=== PATIENT | male | born 2000 | race Caucasian/White ===

== ENCOUNTER 2021-04-23 05:41 | Emergency (ER) | payer BC, MEDICAID, OTHER ==
[~2021-04-23] VITALS: Ht 170.2 cm; Wt 62.1 kg
[2021-04-23 06:49] VITALS: BP 123/81
== END 2021-04-23 07:13 | disposition home or self-care (01) ==
LOC: ER 05:41
DX: S23.41XA Sprain of ribs, initial encounter (principal); E10.8 Type 1 diabetes mellitus with unspecified complications; X58.XXXA Exposure to other specified factors, initial encounter; Y93.89 Activity, other specified; Y92.89 Other specified places as the place of occurrence of the external cause; Y99.8 Other external cause status
CPT/HCPCS: 71045

== ENCOUNTER 2021-05-28 03:22 | Emergency (ER) | payer OTHER ==
[~2021-05-28] VITALS: Ht 170.2 cm; Wt 62.6 kg
[2021-05-28] MEDS ORDERED: SODIUM CHLORIDE 0.9% 1,000 ML IV ONE ×2 (04:00→07:30)
[2021-05-28 04:37] LABS: Basophils # (auto) 0.1 10 ^3/uL (0-0.2); Basophils % (auto) 0.8 % (0.0-2.0); Eosinophils # (auto) 0 10 ^3/uL (0-0.8); Eosinophils % (auto) 0.3 % (0.0-7.0); Hemoglobin 16.7 g/dL (13.5-17.5); Lymphocytes # (auto) 1.8 10 ^3/uL (0.4-5.4); Lymphocytes % (auto) 25.2 % (10.0-50.0); Mean Corpuscular Hemoglobin 31.4 pg (28.0-32.0); Mean Corpuscular Hgb Conc. 34.1 g/dL (32.0-36.0); Mean Corpuscular Volume 92.1 fL (80.0-100.0); Monocytes # (auto) 0.9 10 ^3/uL (0-1.3); Monocytes % (auto) 12.6 % (0.0-12.0); Neutrophils # (auto) 4.4 10 ^3/uL (1.6-8.6); Neutrophils % (auto) 61.1 % (37.0-80.0); Nucleated Red Blood Cells % 0.2 %; Red Blood Cells 5.32 10^6/uL (4.5-5.90); Red Cell Distribution Width 13.5 % (11.8-14.3); White Blood Cell 7.2 10^3/uL (4.4-10.8)
[2021-05-28 04:51] LABS: Albumin 3.4 g/dL (3.4-5.0); Calcium 9.2 mg/dL (8.5-10.1); Magnesium 2.2 mg/dL (1.6-2.6); Potassium 3.6 mmol/L (3.5-5.1)
[2021-05-28 04:53] LABS: BUN/Creatinine Ratio 10.5
[2021-05-28 04:56] LABS: Bilirubin, Total 0.5 mg/dL (0.2-1.0); Total Protein 7.7 g/dL (6.4-8.2)
[2021-05-28] MEDS ORDERED: ONDANSETRON ODT 4 MG TAB PO ONE (05:00)
[2021-05-28] MEDS ORDERED: InsuLIN R (HUMAN) 100 UNITS in SODIUM CHL 0.9% 99 ML IV SCH (06:15)
[2021-05-28] MEDS ORDERED: DEXTROSE (50%) 50ML SYRG IV PRN (06:15)
[2021-05-28 07:37] LABS: Urine Bacteria FEW /hpf (None Seen); Urine Blood Negative /uL (Negative); Urine Hyaline Cast FEW /lpf (0 - 2); Urine Mucus FEW (None Seen); Urine Specific Gravity 1.026 (1.001-1.035); Urine WBC 1 /hpf (0 - 3)
[2021-05-28] MEDS: D5W/SOD CHL 0.45% 1,000 ML IV SCH ×2 (08:17→14:15)
[2021-05-28] MEDS: ACCU-CHEK COMFORT CURVE STRIP VI SCH ×6 (08:23→16:45)
[2021-05-28 09:20] LABS: BUN/Creatinine Ratio 14.6; Calcium 8.6 mg/dL (8.5-10.1)
[2021-05-28] MEDS ORDERED: InsuLIN REG 1unit/0.01ml Soln (100units/ml) IV ONE (10:45)
[2021-05-28 14:11] VITALS: BP 98/50
[2021-05-28 14:22] LABS: Calcium 8.6 mg/dL (8.5-10.1); Potassium 3.8 mmol/L (3.5-5.1)
[2021-05-28 14:25] LABS: BUN/Creatinine Ratio 10.3
== END 2021-05-28 17:05 | disposition left against medical advice (07) ==
LOC: ER 03:22
DX: E10.10 Type 1 diabetes mellitus with ketoacidosis without coma (principal); R74.8 Abnormal levels of other serum enzymes; E86.0 Dehydration; E10.65 Type 1 diabetes mellitus with hyperglycemia; Z20.822 Contact with and (suspected) exposure to COVID-19; Z79.4 Long term (current) use of insulin
CPT/HCPCS: 36415; 36600; 71045; 80048; 80053; 81001; 82010; 82805; 82962; 83036; 83605; 83615; 83735; 83930; 84100; 85025; 87426; 96361; 96374; 99285; J1815; J7030

== ENCOUNTER 2021-12-05 18:37 | Emergency (ER) | payer OTHER ==
[~2021-12-05] VITALS: Ht 170.2 cm; Wt 60.8 kg
[2021-12-05] MEDS: InsuLIN R (HUMAN) 100 UNITS in SODIUM CHL 0.9% 99 ML IV SCH (01:00)
[2021-12-05] MEDS: SODIUM CHLORIDE 0.9% 1,000 ML IV SCH (01:15)
[2021-12-05] MEDS ORDERED: SODIUM CHLORIDE 0.9% 1,000 ML IVB ONE (20:00)
[2021-12-05] MEDS ORDERED: FAMOTIDINE (10MG/ML) 2ML VL IV ONE (20:00)
[2021-12-05] MEDS ORDERED: ONDANSETRON HCL 4 MG/2 ML VIAL IV ONE (20:00)
[2021-12-05 20:40] LABS: Basophils # (auto) 0.1 10 ^3/uL (0-0.2); Basophils % (auto) 0.8 % (0.0-2.0); Eosinophils # (auto) 0 10 ^3/uL (0-0.8); Hematocrit 45.3 % (41.0-53.0); Hemoglobin 15.8 g/dL (13.5-17.5); Lymphocytes # (auto) 0.5 10 ^3/uL (0.4-5.4); Lymphocytes % (auto) 5.4 % (10.0-50.0); Mean Corpuscular Hemoglobin 30.8 pg (28.0-32.0); Mean Corpuscular Hgb Conc. 34.9 g/dL (32.0-36.0); Mean Corpuscular Volume 88.3 fL (80.0-100.0); Monocytes # (auto) 0.6 10 ^3/uL (0-1.3); Monocytes % (auto) 5.7 % (0.0-12.0); Neutrophils # (auto) 8.6 10 ^3/uL (1.6-8.6); Neutrophils % (auto) 88.1 % (37.0-80.0); Red Blood Cells 5.13 10^6/uL (4.5-5.90); Red Cell Distribution Width 12.9 % (11.8-14.3); White Blood Cell 9.7 10^3/uL (4.4-10.8)
[2021-12-05 20:51] LABS: Urine Bacteria FEW /hpf (None Seen); Urine Blood Negative /uL (Negative); Urine Specific Gravity 1.041 (1.001-1.035); Urine WBC 1 /hpf (0 - 3)
[2021-12-05 20:56] LABS: Albumin 3.6 g/dL (3.4-5.0); Calcium 8.7 mg/dL (8.5-10.1); Magnesium 1.8 mg/dL (1.6-2.6); Potassium 4.9 mmol/L (3.5-5.1)
[2021-12-05 21:00] LABS: BUN/Creatinine Ratio 12.7
[2021-12-05 21:02] LABS: Bilirubin, Total 0.8 mg/dL (0.2-1.0); Total Protein 7.4 g/dL (6.4-8.2)
[2021-12-05] MEDS ORDERED: DEXTROSE (50%) 50ML SYRG IV PRN (23:30)
[2021-12-06 00:24] LABS: Calcium 8.5 mg/dL (8.5-10.1); Potassium 5.1 mmol/L (3.5-5.1)
[2021-12-06] MEDS: ACCU-CHEK COMFORT CURVE STRIP VI SCH ×3 (00:50→03:55)
[2021-12-06 01:01] LABS: BUN/Creatinine Ratio 15.2
[2021-12-06] MEDS: SODIUM CHLORIDE 0.9% 1,000 ML IV SCH (01:58)
[2021-12-06] MEDS: InsuLIN R (HUMAN) 100 UNITS in SODIUM CHL 0.9% 99 ML IV SCH ×2 (02:25→03:59)
[2021-12-06] MEDS ORDERED: SODIUM CHLORIDE 0.9% 1,000 ML IV ONE (03:00)
[2021-12-06 04:32] VITALS: BP 114/25
== END 2021-12-06 04:50 | disposition short-term general hospital (02) ==
LOC: ER 18:40
DX: E10.10 Type 1 diabetes mellitus with ketoacidosis without coma (principal); Z20.822 Contact with and (suspected) exposure to COVID-19
CPT/HCPCS: 36415; 80048; 80053; 81001; 82010; 82962; 83605; 83690; 83735; 85025; 87426; 96361; 96365; 96366; 96375; 99285; J1815; J2405; J3490; J7030

== ENCOUNTER 2022-05-25 04:31 | Emergency (ER) | payer OTHER ==
[~2022-05-25] VITALS: Ht 170.2 cm; Wt 64.0 kg
[2022-05-25] MEDS ORDERED: SODIUM CHLORIDE 0.9% 1,000 ML IV ONE ×3 (05:00→12:00)
[2022-05-25 05:04] VITALS: BP 110/71
[2022-05-25 06:12] LABS: Basophils # (auto) 0 10 ^3/uL (0-0.2); Basophils % (auto) 0.5 % (0.0-2.0); Eosinophils # (auto) 0 10 ^3/uL (0-0.8); Eosinophils % (auto) 0.3 % (0.0-7.0); Hematocrit 48.3 % (41.0-53.0); Hemoglobin 16.1 g/dL (13.5-17.5); Lymphocytes # (auto) 1.3 10 ^3/uL (0.4-5.4); Lymphocytes % (auto) 20.4 % (10.0-50.0); Mean Corpuscular Hemoglobin 31.3 pg (28.0-32.0); Mean Corpuscular Hgb Conc. 33.4 g/dL (32.0-36.0); Mean Corpuscular Volume 93.9 fL (80.0-100.0); Monocytes # (auto) 0.5 10 ^3/uL (0-1.3); Monocytes % (auto) 7.5 % (0.0-12.0); Neutrophils # (auto) 4.6 10 ^3/uL (1.6-8.6); Neutrophils % (auto) 71.3 % (37.0-80.0); Nucleated Red Blood Cells % 0.2 %; Red Blood Cells 5.14 10^6/uL (4.5-5.90); Red Cell Distribution Width 13.3 % (11.8-14.3); White Blood Cell 6.4 10^3/uL (4.4-10.8)
[2022-05-25 06:15] LABS: Albumin 3.5 g/dL (3.4-5.0); Calcium 8.7 mg/dL (8.5-10.1); Potassium 4.6 mmol/L (3.5-5.1)
[2022-05-25 06:19] LABS: Bilirubin, Total 0.7 mg/dL (0.2-1.0); Total Protein 7.1 g/dL (6.4-8.2)
[2022-05-25] MEDS ORDERED: InsuLIN REG 1unit/0.01ml Soln (100units/ml) IV ONE (07:00)
[2022-05-25] MEDS ORDERED: ONDANSETRON HCL 4 MG/2 ML VIAL IV ONE (07:00)
[2022-05-25 07:11] LABS: BUN/Creatinine Ratio 11.7
[2022-05-25] MEDS ORDERED: ONDA-144 PO (11:03)
== END 2022-05-25 11:59 | disposition home or self-care (01) ==
LOC: ER 04:31
DX: E11.65 Type 2 diabetes mellitus with hyperglycemia (principal); F17.290 Nicotine dependence, other tobacco product, uncomplicated
CPT/HCPCS: 36415; 71046; 80053; 82010; 82962; 83735; 85025; 93005; 96360; 99285; J7030

== ENCOUNTER 2022-07-13 09:56 | Emergency (ER) | payer OTHER ==
[~2022-07-13] VITALS: Ht 170.2 cm; Wt 59.7 kg
[~2022-07-13 09:56] MED LIST: ONDA-144 PO
[2022-07-13 13:01] VITALS: BP 113/75
[2022-07-13] MEDS ORDERED: ACETAMINOPHEN 500 MG TAB PO ONE (13:15)
[2022-07-13] MEDS ORDERED: IBUP600T27 PO (13:47)
== END 2022-07-13 13:47 | disposition home or self-care (01) ==
LOC: ER 09:56
DX: S29.011A Strain of muscle and tendon of front wall of thorax, initial encounter (principal); E11.9 Type 2 diabetes mellitus without complications; Z79.899 Other long term (current) drug therapy; X58.XXXA Exposure to other specified factors, initial encounter; Y93.89 Activity, other specified; Y92.89 Other specified places as the place of occurrence of the external cause; Y99.8 Other external cause status
CPT/HCPCS: 71101

== ENCOUNTER 2022-11-05 00:52 | Inpatient (IN) | payer OTHER ==
[~2022-11-05] VITALS: Ht 170.2 cm; Wt 61.2 kg
[~2022-11-05 00:52] MED LIST changes: +IBUP600T27 PO
[2022-11-05 01:19] LABS: Basophils # (auto) 0.1 10 ^3/uL (0-0.2); Eosinophils # (auto) 0 10 ^3/uL (0-0.8); Eosinophils % (auto) 0.5 % (0.0-7.0); Lymphocytes # (auto) 2.2 10 ^3/uL (0.4-5.4); Lymphocytes % (auto) 30.6 % (10.0-50.0); Mean Corpuscular Hgb Conc. 33.4 g/dL (32.0-36.0); Mean Corpuscular Volume 95.6 fL (80.0-100.0); Monocytes # (auto) 0.5 10 ^3/uL (0-1.3); Monocytes % (auto) 7.6 % (0.0-12.0); Neutrophils # (auto) 4.3 10 ^3/uL (1.6-8.6); Neutrophils % (auto) 60.3 % (37.0-80.0); Red Blood Cells 5.02 10^6/uL (4.5-5.90); Red Cell Distribution Width 13.6 % (11.8-14.3); White Blood Cell 7.2 10^3/uL (4.4-10.8)
[2022-11-05 01:36] LABS: Albumin 3.7 g/dL (3.4-5.0); Calcium 9.1 mg/dL (8.5-10.1); Potassium 4.6 mmol/L (3.5-5.1)
[2022-11-05 01:38] LABS: Bilirubin, Total 0.7 mg/dL (0.2-1.0); Total Protein 7.7 g/dL (6.4-8.2)
[2022-11-05 01:43] LABS: Urine WBC None Seen /hpf (0 - 3)
[2022-11-05 02:14] LABS: Urine Specific Gravity 1.023 (1.001-1.035)
[2022-11-05 02:15] LABS: Urine Bacteria NONE SEEN /hpf (None Seen); Urine Blood Negative /uL (Negative)
[2022-11-05] MEDS ORDERED: INSULIN LANTUS (GLARGINE) 1 /0.01ml (100units/ml) SC ONE (02:30)
[2022-11-05] MEDS ORDERED: DEXTROSE (50%) 50ML SYRG IV PRN ×2 (02:30→10:30)
[2022-11-05 02:39] LABS: BUN/Creatinine Ratio 20.9 (10.0-20.0)
[2022-11-05] MEDS ORDERED: InsuLIN REG 1unit/0.01ml Soln (100units/ml) IV ONE (02:45)
[2022-11-05] MEDS: SODIUM CHLORIDE 0.9% 1,000 ML IV SCH ×3 (02:46→15:36)
[2022-11-05] MEDS: ACCU-CHEK COMFORT CURVE STRIP VI SCH ×10 (03:00→23:56)
[2022-11-05] MEDS: InsuLIN R (HUMAN) 100 UNITS in SODIUM CHL 0.9% 99 ML IV SCH ×2 (03:01→04:35)
[2022-11-05 03:41] LABS: Calcium 8.9 mg/dL (8.5-10.1); Potassium 3.6 mmol/L (3.5-5.1)
[2022-11-05] MEDS ORDERED: SODIUM CHLORIDE 0.9% 1,000 ML IV SCH ×2 (06:30→08:30)
[2022-11-05] MEDS ORDERED: D5W/SOD CHL 0.45% 1,000 ML IV ONE (06:45)
[2022-11-05] MEDS ORDERED: NITROGLYCERIN 0.4 MG SL TAB SL PRN (07:00)
[2022-11-05] MEDS ORDERED: MORPHINE SULFATE INJ 2 MG/ml SYRG IV PRN (07:00)
[2022-11-05] MEDS ORDERED: ONDANSETRON HCL 4 MG/2 ML VIAL IV PRN (07:00)
[2022-11-05 08:57] LABS: Potassium 3.6 mmol/L (3.5-5.1)
[2022-11-05 09:00] LABS: BUN/Creatinine Ratio 20.5 (10.0-20.0); Calcium 8.2 mg/dL (8.5-10.1)
[2022-11-05] MEDS: InsuLIN REG 1unit/0.01ml Soln (100units/ml) SC SCH ×4 (11:07→23:56)
[2022-11-05] MEDS: PANTOPRAZOLE 40 MG/10 ML VIAL INJ IV SCH (11:54)
[2022-11-05 15:13] LABS: BUN/Creatinine Ratio 9.6 (10.0-20.0); Potassium 5.1 mmol/L (3.5-5.1)
[2022-11-05 18:30] VITALS: BP 102/58
[2022-11-05] MEDS ORDERED: INSLANTI SC (18:48)
[2022-11-05 20:00] VITALS: BP 105/54
[2022-11-05 22:00] VITALS: BP 105/54
[2022-11-05] MEDS ORDERED: INSULIN LANTUS (GLARGINE) 1 /0.01ml (100units/ml) SC SCH (22:00)
[2022-11-06] MEDS: SODIUM CHLORIDE 0.9% 1,000 ML IV SCH ×2 (00:45→10:45)
[2022-11-06] MEDS: ACCU-CHEK COMFORT CURVE STRIP VI SCH ×3 (04:00→12:00)
[2022-11-06] MEDS: InsuLIN REG 1unit/0.01ml Soln (100units/ml) SC SCH ×3 (04:00→12:00)
[2022-11-06 05:00] VITALS: BP 97/56
[2022-11-06 06:29] LABS: Basophils # (auto) 0.1 10 ^3/uL (0-0.2); Eosinophils # (auto) 0.1 10 ^3/uL (0-0.8); Eosinophils % (auto) 1.8 % (0.0-7.0); Hematocrit 41.9 % (41.0-53.0); Hemoglobin 14.6 g/dL (13.5-17.5); Lymphocytes # (auto) 3.1 10 ^3/uL (0.4-5.4); Lymphocytes % (auto) 53.6 % (10.0-50.0); Mean Corpuscular Hgb Conc. 34.9 g/dL (32.0-36.0); Mean Corpuscular Volume 91.7 fL (80.0-100.0); Monocytes # (auto) 0.5 10 ^3/uL (0-1.3); Monocytes % (auto) 8.5 % (0.0-12.0); Neutrophils % (auto) 35.1 % (37.0-80.0); Nucleated Red Blood Cells % 0.1 %; Red Blood Cells 4.57 10^6/uL (4.5-5.90); Red Cell Distribution Width 13.4 % (11.8-14.3); White Blood Cell 5.8 10^3/uL (4.4-10.8)
[2022-11-06 06:41] LABS: Calcium 8.4 mg/dL (8.5-10.1); Potassium 3.1 mmol/L (3.5-5.1)
[2022-11-06] MEDS: PANTOPRAZOLE 40 MG/10 ML VIAL INJ IV SCH (07:57)
[2022-11-06 08:00] VITALS: BP 106/71
[2022-11-06 08:56] VITALS: BP 106/71
[2022-11-06] MEDS ORDERED: INSULIN LANTUS (GLARGINE) 1 /0.01ml (100units/ml) SC SCH (10:00)
[2022-11-06] MEDS ORDERED: POTASSIUM CHL 20 Meq TABLET PO ONE (11:45)
[2022-11-06 12:10] VITALS: BP 106/71
[2022-11-06 16:38] VITALS: BP_SYST 121; BP_SYST 133; BP_DIAS 77
== END 2022-11-06 13:30 | disposition home or self-care (01) | DRG 638 ==
LOC: ER 00:52 → TELE 06:55 → TELE-EAST 18:51 → EAST 11-06 00:50
PROVIDERS: ADMIT Nurse Practitioner; ATTEND Internal Medicine
DX: E11.10 Type 2 diabetes mellitus with ketoacidosis without coma (principal); E87.1 Hypo-osmolality and hyponatremia; N17.9 Acute kidney failure, unspecified; E86.0 Dehydration; E87.6 Hypokalemia; Z20.822 Contact with and (suspected) exposure to COVID-19
CPT/HCPCS: 36415; 71046; 80048; 80053; 81001; 82010; 82962; 84484; 85025; 87426; 93005; 96361; 96365; 96372; 96375; 99291; C9113; G0378; J1815

== ENCOUNTER 2022-11-09 19:13 | Emergency (ER) | payer OTHER ==
[~2022-11-09] VITALS: Ht 170.2 cm; Wt 64.0 kg
[2022-11-09 19:13] VITALS: BP 118/80
[~2022-11-09 19:13] MED LIST changes: +INSLANTI SC
== END 2022-11-09 21:25 | disposition home or self-care (01) ==
LOC: ER 19:13
DX: S63.696A Other sprain of right little finger, initial encounter (principal); X58.XXXA Exposure to other specified factors, initial encounter; Y93.61 Activity, american tackle football; Y92.89 Other specified places as the place of occurrence of the external cause; Y99.8 Other external cause status
CPT/HCPCS: 29130; 73140

== ENCOUNTER 2023-02-16 17:52 | Emergency (ER) | payer OTHER ==
[~2023-02-16] VITALS: Ht 170.2 cm; Wt 63.2 kg
[~2023-02-16 17:52] MED LIST changes: +IBUP-1454 PO; -IBUP600T27 PO
[2023-02-16 19:27] LABS: Basophils # (auto) 0.1 10 ^3/uL (0-0.2); Eosinophils # (auto) 0.2 10 ^3/uL (0-0.8); Eosinophils % (auto) 1.6 % (0.0-7.0); Lymphocytes # (auto) 2.3 10 ^3/uL (0.4-5.4); Neutrophils # (auto) 6.9 10 ^3/uL (1.6-8.6)
[2023-02-16 19:29] LABS: Lymphocytes % (auto) 22.8 % (10.0-50.0); Mean Corpuscular Hemoglobin 31.5 pg (28.0-32.0); Mean Corpuscular Volume 92.9 fL (80.0-100.0); Monocytes # (auto) 0.6 10 ^3/uL (0-1.3); Neutrophils % (auto) 68.6 % (37.0-80.0); Nucleated Red Blood Cells % 0.2 %; Red Blood Cells 5.06 10^6/uL (4.5-5.90); White Blood Cell 10.1 10^3/uL (4.4-10.8)
[2023-02-16 19:44] LABS: Albumin 3.2 g/dL (3.4-5.0); Calcium 9.5 mg/dL (8.5-10.1); Potassium 4.6 mmol/L (3.5-5.1)
[2023-02-16] MEDS ORDERED: IOHEXOL 300 MG/ML 100ML BOTTLE IJ ONE (19:45)
[2023-02-16 19:48] LABS: BUN/Creatinine Ratio 15.7 (10.0-20.0); Bilirubin, Total 0.3 mg/dL (0.2-1.0); Total Protein 7.6 g/dL (6.4-8.2)
[2023-02-16] MEDS ORDERED: InsuLIN REG 1unit/0.01ml Soln (100units/ml) IV ONE (20:30)
[2023-02-16] MEDS ORDERED: SODIUM CHLORIDE 0.9% 1,000 ML IV ONE (20:30)
[2023-02-16] MEDS ORDERED: IBU600T PO (21:01)
[2023-02-16] MEDS ORDERED: CLIN300C70 PO (21:01)
[2023-02-16] MEDS ORDERED: AMPICILLIN & SULBACTAM SODIUM 3 GM in SODIUM CHL 0.9% 100 ML IV ONE (21:15)
[2023-02-16 23:25] VITALS: BP 110/68; PULSE 88; RESP 16; TEMP 98.2; O2SAT 97
== END 2023-02-16 23:26 | disposition home or self-care (01) ==
LOC: ER 17:52
DX: R22.1 Localized swelling, mass and lump, neck (principal); E11.65 Type 2 diabetes mellitus with hyperglycemia; K11.20 Sialoadenitis, unspecified; Q89.8 Other specified congenital malformations; Z79.899 Other long term (current) drug therapy
CPT/HCPCS: 36415; 70460; 70491; 80053; 82962; 85025; 96365; 99285; J7030; Q9967

== ENCOUNTER 2023-07-18 01:33 | Emergency (ER) | payer OTHER ==
[~2023-07-18] VITALS: Ht 170.2 cm; Wt 65.0 kg
[~2023-07-18 01:33] MED LIST changes: +CLIN300C70 PO; +IBU600T PO
[2023-07-18 02:32] LABS: Basophils # (auto) 0 10 ^3/uL (0-0.2); Basophils % (auto) 0.2 % (0.0-2.0); Eosinophils # (auto) 0 10 ^3/uL (0-0.8); Eosinophils % (auto) 0.5 % (0.0-7.0); Hematocrit 47.5 % (41.0-53.0); Hemoglobin 16.1 g/dL (13.5-17.5); Lymphocytes # (auto) 0.7 10 ^3/uL (0.4-5.4); Lymphocytes % (auto) 6.2 % (10.0-50.0); Mean Corpuscular Hemoglobin 31.2 pg (28.0-32.0); Mean Corpuscular Hgb Conc. 33.8 g/dL (32.0-36.0); Mean Corpuscular Volume 92.3 fL (80.0-100.0); Monocytes # (auto) 0.4 10 ^3/uL (0-1.3); Monocytes % (auto) 3.7 % (0.0-12.0); Neutrophils # (auto) 9.6 10 ^3/uL (1.6-8.6); Neutrophils % (auto) 89.4 % (37.0-80.0); Red Blood Cells 5.15 10^6/uL (4.5-5.90); White Blood Cell 10.7 10^3/uL (4.4-10.8)
[2023-07-18 02:50] LABS: Alanine Aminotransferase 58 U/L (7-40); Albumin 4.3 g/dL (3.2-4.8); Alkaline Phosphatase 176 U/L (46-116); Anion Gap 9 (5-15); Aspartate Aminotransferase 32 U/L (13-40); BUN/Creatinine Ratio 10.1 (10.0-20.0); Blood Urea Nitrogen 10 mg/dL (9-23); Calcium 8.9 mg/dL (8.7-10.4); Carbon Dioxide 25 mmol/L (20-30); Chloride 100 mmol/L (98-107); Glucose 365 mg/dL (74-106); Lipase 29 U/L (12-53); Potassium 4.7 mmol/L (3.5-5.1); Sodium 134 mmol/L (136-145)
[2023-07-18 02:51] LABS: Bilirubin, Total 1.1 mg/dL (0.2-1.0)
[2023-07-18 03:30] LABS: Urine Bacteria NONE SEEN /hpf (None Seen); Urine Blood Negative /uL (Negative); Urine Clarity Clear (Clear); Urine Protein, UAD Negative (Negative); Urine Specific Gravity 1.041 (1.001-1.035); Urine Urobilinogen Normal (Negative); Urine WBC 2 /hpf (0 - 3); Urine pH 5.5 (5.0-8.0)
[2023-07-18 03:44] LABS: Urine Color Straw (Yellow)
[2023-07-18] MEDS ORDERED: SODIUM CHLORIDE 0.9% 1,000 ML IV ONE (05:15)
[2023-07-18] MEDS ORDERED: ZOFR4T PO (08:03)
[2023-07-18 08:30] VITALS: BP 104/64; PULSE 93; RESP 16; TEMP 98.4; O2SAT 100
== END 2023-07-18 08:35 | disposition home or self-care (01) ==
LOC: ER 01:33
DX: E11.65 Type 2 diabetes mellitus with hyperglycemia (principal); R11.2 Nausea with vomiting, unspecified; F17.290 Nicotine dependence, other tobacco product, uncomplicated; F12.10 Cannabis abuse, uncomplicated
CPT/HCPCS: 36415; 80053; 81001; 82962; 83690; 85025; 96360; 99283; J7030

== ENCOUNTER 2023-09-10 00:48 | Emergency (ER) | payer OTHER ==
[~2023-09-10] VITALS: Ht 170.2 cm; Wt 61.7 kg
[~2023-09-10 00:48] MED LIST changes: +ZOFR4T PO
[2023-09-10 01:26] LABS: Urine Bacteria NONE SEEN /hpf (None Seen); Urine Blood Negative /uL (Negative); Urine Clarity Clear (Clear); Urine Color Yellow (Yellow); Urine Protein, UAD TRACE (Negative); Urine Specific Gravity 1.039 (1.001-1.035); Urine Urobilinogen Normal (Negative); Urine WBC 1 /hpf (0 - 3); Urine pH 5.5 (5.0-8.0)
[2023-09-10] MEDS: ONDANSETRON ODT 4 MG TAB PO ONE (01:45)
[2023-09-10 01:47] LABS: Basophils # (auto) 0.1 10 ^3/uL (0-0.2); Basophils % (auto) 1.4 % (0.0-2.0); Eosinophils # (auto) 0 10 ^3/uL (0-0.8); Eosinophils % (auto) 0.1 % (0.0-7.0); Lymphocytes # (auto) 0.8 10 ^3/uL (0.4-5.4); Mean Corpuscular Hemoglobin 30.7 pg (28.0-32.0); Mean Corpuscular Hgb Conc. 34.1 g/dL (32.0-36.0); Monocytes # (auto) 0.5 10 ^3/uL (0-1.3); Monocytes % (auto) 12.8 % (0.0-12.0); Neutrophils # (auto) 2.6 10 ^3/uL (1.6-8.6); Neutrophils % (auto) 64.7 % (37.0-80.0); Red Blood Cells 5.55 10^6/uL (4.5-5.90)
[2023-09-10 02:02] LABS: INR 0.95 (0.9-1.15); Partial Thromboplastin Time 28.2 SEC (24.5-34.5)
[2023-09-10 02:05] LABS: Alanine Aminotransferase 62 U/L (7-40); Alkaline Phosphatase 200 U/L (46-116); Anion Gap 9 (5-15); Aspartate Aminotransferase 64 U/L (13-40); BUN/Creatinine Ratio 8.9 (10.0-20.0); Blood Urea Nitrogen 9 mg/dL (9-23); Calcium 9.8 mg/dL (8.7-10.4); Carbon Dioxide 26 mmol/L (20-30); Chloride 100 mmol/L (98-107); Glucose 186 mg/dL (74-106); Lipase 32 U/L (12-53); Sodium 135 mmol/L (136-145)
[2023-09-10 02:06] LABS: Albumin 4.9 g/dL (3.2-4.8); Bilirubin, Total 0.8 mg/dL (0.2-1.0); Total Protein 8.3 g/dL (5.7-8.2)
[2023-09-10] MEDS: SODIUM CHLORIDE 0.9% 1,000 ML IVB ONE (02:16)
[2023-09-10] MEDS: MORPHINE SULFATE INJ 2 MG/ml SYRG IM ONE (02:36)
[2023-09-10 02:42] LABS: Lactic Acid w/Reflex 2.1 mmol/L (0.4-2.0)
[2023-09-10] MEDS: PIPERACILLIN-TAZOB 3.375GM 100 ML IV ONE (04:57)
[2023-09-10] MEDS: SODIUM CHLORIDE 0.9% 1,000 ML IV ONE (04:57)
[2023-09-10 05:06] VITALS: PULSE 98; RESP 18; O2SAT 97
[2023-09-10 07:14] VITALS: BP 111/56; PULSE 105; RESP 17; TEMP 98.7; O2SAT 96
[2023-09-10 15:37] LABS: Amphetamine Screen, Urine Neg (NEGATIVE); Barbiturate Scree,Urine Neg (NEGATIVE); Benzodiazephine Screen, Urine Neg (NEGATIVE); Cocaine Screen, Urine Neg (NEGATIVE)
[2023-09-10 15:38] LABS: Cannabinoid Screen, Urine Neg (NEGATIVE); Opiate Scree,Urine Neg (NEGATIVE); Phencyclidine Screen, Urine Neg (NEGATIVE)
== END 2023-09-10 08:14 | disposition short-term general hospital (02) ==
LOC: ER 00:48
DX: R10.12 Left upper quadrant pain (principal); E11.9 Type 2 diabetes mellitus without complications; F15.90 Other stimulant use, unspecified, uncomplicated; Z79.899 Other long term (current) drug therapy
CPT/HCPCS: 36415; 74176; 80053; 80307; 81001; 82010; 83605; 83690; 84484; 85025; 85610; 85730; 96361; 96365; 96372; 99285; J2270; J2543; J7030; Q0162

== ENCOUNTER 2024-12-25 02:46 | Emergency (ER) | payer MEDICAID, OTHER ==
[~2024-12-25] VITALS: Ht 170.2 cm; Wt 68.2 kg
[~2024-12-25 02:46] MED LIST changes: +CLIN1CAP70 PO; -CLIN300C70 PO
[2024-12-25 03:25] LABS: Basophils # (auto) 0 10 ^3/uL (0-0.2); Basophils % (auto) 0.8 % (0.0-2.0); Eosinophils # (auto) 0.1 10 ^3/uL (0-0.8); Eosinophils % (auto) 1.2 % (0.0-7.0); Hematocrit 48.8 % (41.0-53.0); Hemoglobin 16.5 g/dL (13.5-17.5); Lymphocytes # (auto) 1.3 10 ^3/uL (0.4-5.4); Lymphocytes % (auto) 24.8 % (10.0-50.0); Mean Corpuscular Hemoglobin 30.5 pg (28.0-32.0); Mean Corpuscular Hgb Conc. 33.8 g/dL (32.0-36.0); Mean Corpuscular Volume 90.1 fL (80.0-100.0); Monocytes # (auto) 0.3 10 ^3/uL (0-1.3); Monocytes % (auto) 5.2 % (0.0-12.0); Neutrophils # (auto) 3.5 10 ^3/uL (1.6-8.6); Nucleated Red Blood Cells % 0.1 %; Platelet Count (auto) 368 10^3/uL (140-450); Red Blood Cells 5.41 10^6/uL (4.5-5.90); Red Cell Distribution Width 13.1 % (11.8-14.3); White Blood Cell 5.2 10^3/uL (4.4-10.8)
[2024-12-25 03:43] LABS: Potassium 4.6 mmol/L (3.5-5.1)
[2024-12-25 03:44] LABS: Anion Gap 10 (5-15); Carbon Dioxide 29 mmol/L (20-31)
[2024-12-25 03:45] LABS: Calcium 9.6 mg/dL (8.7-10.4); Chloride 93 mmol/L (98-107); Sodium 132 mmol/L (136-145)
[2024-12-25 03:49] LABS: BUN/Creatinine Ratio 18.4 (10.0-20.0); Blood Urea Nitrogen 18 mg/dL (9-23)
[2024-12-25 03:52] LABS: Glucose 503 mg/dL (74-106)
--- NOTE | 2024-12-25 04:37 | ED.PDOC ---
History of Present Illness HPI Comments 24-year-old male with PMHx DM1 presents with a chief complaint of chest pain x 5 days with associated nausea and diarrhea. Patient states that his pain is localized to his left chest near his serratus anterior. Patient mentions that the pain has been present for the past 5 days and has been worsening which p rompted the ER visit. Patient denies any cardiac history. Patient mentions that he has had nausea, but no vomiting. Patient reports frequent diarrhea lately as well. Chief Complaint: Chest Pain Time Seen by MD: 04:30 Primary Care Provider: RITESH Reviewed Notes: Medications, Allergies Allergies: Coded Allergies: NO KNOWN ALLERGIES (Unverified , 11/16/12) Home Meds Active Scripts Ondansetron Odt 4MG Tab (ZOFRAN PO) 4 Mg Tb, 4 MG PO TID for 7 Days, #21 TAB ODT TAB-DISSOLVE IN MOUTH, THEN SWALLOW Prov:ARSENIO WALKER MD 07/18/23 Ibuprofen Micronized (MOTRIN TABLET) 600 Mg Tb, 1 TAB PO TID PRN, #20 TAB as needed for pain with food Prov:GEORGE MELENDREZA Q ENTERPRISE ENGINEER 02/16/23 Clindamycin Hcl (Clindamycin Hcl) 300 Mg Cap, 1 CAP PO QID for 10 Days, #40 CAP Prov:HAYES MELENDREZ Q ENTERPRISE ENGINEER 02/16/23 Ibuprofen (Ibuprofen) 600 Mg Tab, 1 TAB PO Q8HPRN PRN, #90 TAB 0 Refills Prov:OLIVIA MASON BARREL CENTERER 07/13/22 Ondansetron (Zofran) 4 Mg Tab, 1 TAB PO Q6HR, #20 TAB Prov:MARIA L CORMIER MD 05/25/22 Reported Medications Insulin Glargine (Lantus) 100 Unit/Ml Inj, 27 UNIT SC 11/05/22 Information Source: Patient Mode of Arrival: Ambulatory Severity: Moderate Timing: Days Duration: Since onset Prehospital treatment: None Past Medical History PAST MEDICAL HISTORY: DM Surgical History: Denies all surgeries Family History Family History: Unknown Social History Smoker: Non-Smoker, Other Alcohol: Occasionally Drugs: Marijuana Lives In: Home Constitutional: denies: chills, diaphoresis, fatigue, fever, malaise, sweats, weakness, others EENTM: denies: blurred vision, double vision, ear bleeding, ear discharge, ear drainage, ear pain, ear ringing, eye pain, eye redness, hearing loss, mouth pain, mouth swelling, nasal discharge, nose bleeding, nose congestion, nose pain, photophobia, tearing, throat pain, throat swelling, voice changes, others Respiratory: denies: cough, hemoptysis, orthopnea, SOB at rest, shortness of breath, SOB with excertion, stridor, wheezing, others Cardiovascular: reports: chest pain; denies: dizzy spells, diaphoresis, Dyspnea on exertion, edema, irregular heart beat, left arm pain, lightheadedness, palpitations, PND, syncope, others Gastrointestinal: reports: diarrhea, nausea; denies: abdomen distended, abdominal pain, blood streaked bowels, constipated, dysphagia, difficulty swallowing, hematemesis, melena, poor appetite, poor fluid intake, rectal bleeding, rectal pain, vomiting, others Neurological: denies: dizziness, fainting, headache, left sided numbness, left sided weakness, numbness, paresthesia, pre-existing deficit, right sided numbness, right sided weakness, seizure, speech problems, tingling, tremors, weakness, others Musculoskeletal: denies: back pain, gout, joint pain, joint swelling, muscle pain, muscle stiffness, neck pain, others Integumetry: denies: bruises, change in color, change in hair/nails, dryness, laceration, lesions, lumps, rash, wounds, others Allergic/Immunocompromised: denies: Difficulty Healing, Frequent Infections, Hives, Itching, others Hematologic/Lymphatic: denies: anemia, blood clots, easy bleeding, easy bruising, swollen glands, others Endocrine: denies: excessive hunger, excessive sweating, excessive thirst, excessive urination, flushing, intolerance to cold, intolerance to heat, unexplained weight gain, unexplained weight loss, others Psychiatric: denies: anxiety, bipolar disorder, depression, hopeless, panic disorder, schizophrenia, sleepless, suicidal, others All Other Systems: Reviewed and Negative Physical Exam General Appearance: No Apparent Distress, Normal HEENT: Normal ENT Inspection, Pharynx Normal, TMs Normal Neck: Full Range of Motion, Non-Tender, Normal, Normal Inspection Respiratory: Chest Non-Tender, Lungs Clear, No Accessory Muscle Use, No Respiratory Distress, Normal Breath Sounds Cardiovascular: No Edema, No JVD, No Murmur, No Gallop, Normal Peripheral Pulses, Regular Rate/Rhythm Breast Exam: Deferred Gastrointestinal: No Organomegaly, Non Tender, No Pulsatile Mass, Normal Bowel Sounds, Soft Genitalia: Deferred Pelvic: Deferred Rectal: Deferred Extremities: No calf tenderness, Normal capillary refill, Normal inspection, Normal range of motion, Non-tender, No pedal edema Musculoskeletal : Apperance: Normal Neurologic: Alert, study specialist II-XII nml as Tested, No Motor Deficits, Normal Affect, Normal Mood, No Sensory Deficits Cerebellar Function: Normal Reflexes: Normal Skin: Dry, Normal Color, Warm Lymphatic: No Adenopathy Was a procedure done? Was a procedure done?: No Differential Dx Considerations may include: ACS, CVA, electrolyte abnormality, viral syndrome X-Ray, Labs, Meds, VS Vital Signs Date Time Temp Pulse Resp B/P (MAP) Pulse Ox O2 Delivery O2 Flow Rate FiO2 12/25/24 05:00 Room Air* 0 21 12/25/24 03:49 97 12/25/24 02:59 98.0 106 16 124/77 (93) 98 98.0 12/25/24 02:52 91 Lab Test 12/25/24 04:59 12/25/24 04:07 12/25/24 03:14 12/25/24 03:08 Range/Units POC Glucose 496 *H 446 *H 70-106 mg/dl Troponin I High Sensitivity < 3 L < 3 L </=54 ng/L White Blood Count 5.2 4.4-10.8 10^3/uL Red Blood Count 5.41 4.5-5.90 10^6/uL Hemoglobin 16.5 13.5-17.5 g/dL Hematocrit 48.8 41.0-53.0 % Mean Corpuscular Volume 90.1 80.0-100.0 fL Mean Corpuscular Hemoglobin 30.5 28.0-32.0 pg Mean Corpuscular Hemoglobin Concent 33.8 32.0-36.0 g/dL Red Cell Distribution Width 13.1 11.8-14.3 % Platelet Count 368 140-450 10^3/uL Mean Platelet Volume 7.3 6.9-10.8 fL Neutrophils (%) (Auto) 68.0 37.0-80.0 % Lymphocytes (%) (Auto) 24.8 10.0-50.0 % Monocytes (%) (Auto) 5.2 0.0-12.0 % Eosinophils (%) (Auto) 1.2 0.0-7.0 % Basophils (%) (Auto) 0.8 0.0-2.0 % Neutrophils # (Auto) 3.5 1.6-8.6 10 ^3/uL Lymphocytes # (Auto) 1.3 0.4-5.4 10 ^3/uL Monocytes # (Auto) 0.3 0-1.3 10 ^3/uL Eosinophils # (Auto) 0.1 0-0.8 10 ^3/uL Basophils # (Auto) 0 0-0.2 10 ^3/uL Nucleated Red Blood Cells 0.1 % Sodium Level 132 L 136-145 mmol/L Potassium Level 4.6 3.5-5.1 mmol/L Chloride Level 93 L 98-107 mmol/L Carbon Dioxide Level 29 20-31 mmol/L Anion Gap 10 5-15 Blood Urea Nitrogen 18 9-23 mg/dL Creatinine 0.98 0.700-1.30 mg/dL Glomerular Filtration Rate Calc 110 >90 mL/min BUN/Creatinine Ratio 18.4 10.0-20.0 Serum Glucose 503 *H 74-106 mg/dL Calcium Level 9.6 8.7-10.4 mg/dL Test 12/25/24 03:06 Range/Units POC Glucose 460 *H 70-106 mg/dl Current Medications Medications (Trade) Dose Ordered Sig/Siri Route Start Time Stop Time Status Last Admin Insulin Human Regular (InsuLIN R) 10 units ONCE ONCE SC 12/25/24 04:45 12/25/24 04:46 DC 12/25/24 05:02 Time of 1ST Reevaluation: 05:00 Reevaluation 1ST: Unchanged Patient Education/Counseling: Diagnosis, Treatment Family Education/Counseling: No Family Present Departure 1 Departure Time of Disposition: 05:49 (Patient presented with chest pain that was concerning for possible STEMI, ACS, PE, Pneumonia, Muscle Strain, COPD, Dissection. Data: 1. I ordered and reviewed the result of at least 3 labs including a CBC, BMP, and Troponin. 2. I independently interpreted the following tests: EKG which shows normal sinus rhythm and Chest X-ray which shows a benign chest.Risk:This patient presented with a high risk of morbidity due to further diagnostic testing or treatment and may suffer from an acute cardiac or respiratory disorder. After review of all the data patient is unlikely to have a pe , dissection, and is low risk for acs. Patient is stable at this time.Workup so far is benign and patient will be discharged with outpatient followup. ) Impression: Primary Impression: Acute pain Additional Impression: Uncontrolled diabetes mellitus Qualified Codes: E10.65 - Type 1 diabetes mellitus with hyperglycemia Disposition: HOME / SELF CARE / HOMELESS Condition: Stable Additional Instructions: You presented today with chest pain. Your workup today was benign including labs, troponin, EKG, chest x-ray. Your pain may be from musculoskeletal strain, acid reflux, anxiety, or many other factors. It is important to follow up with your regular doctor within 1 week. If your symptoms worsen or you have any other concerns please return to the emergency room. Discharged With: Self Critical Care Note Critical Care Time?: No Stability Stability form required: No I personally scribed for SHANDRA VALADEZ MD ([email or web address]) on 12/25/24 at 04:37. Electronically submitted by Derik Og ([email or web address]). SHANDRA VALADEZ MD December 25, 2024 04:37
--- NOTE | 2024-12-25 04:41 | ECG ---
[facility] Test Date: 2024-12-25 Test Time: 03:49:09 Pat Name: SHERWIN ASCENCIO Department: ED Room: Gender: M Accounting Bookkeeper: JONG : 2000 Requested By: SHANDRA VALADEZ Order Number: [id number] Reading MD: Yves Hackett Measurements Intervals [place] Rate: 97 P: 75 LA: 147 QRS: 104 QRSD: 95 T: -31 QT: 344 QTc: 437 Interpretive Statements Sinus rhythm Biatrial enlargement Borderline right axis deviation Nonspecific T abnormalities, inferior leads Electronically Signed On 12-25-2024 12:18:21 PDT by Yves Hackett Please click the below link to view image of tracing.
[2024-12-25] MEDS: InsuLIN REG 1unit/0.01ml Soln (100units/ml) SC ONE (05:02)
[2024-12-25 05:49] VITALS: BP 100/63; PULSE 84; RESP 16; TEMP 98.3; O2SAT 99
--- NOTE | 2024-12-25 05:54 | DVH ---
EXAM: XY CHEST PORTABLE Indication: chest pain Technique: Single frontal view of the chest was obtained Comparison: XY CHEST PORTABLE on DOS: 10/24/23, EKG on DOS: 05/25/22, CHEST PORTABLE on DOS: 05/28/21, CXR1 on DOS: 04/23/21, CHEST XRAY 1 VIEW on DOS: 04/23/21 FINDINGS: Lines and Tubes: None Lungs: No focal consolidation. Pleura: No effusion. No pneumothorax. Cardiomediastinal contours: Unremarkable Bones: No acute osseous abnormality. IMPRESSION: No acute cardiopulmonary disease.
--- NOTE | 2024-12-26 13:03 | ECG ---
[facility] Test Date: 2024-12-25 Test Time: 02:52:47 Pat Name: SHERWIN ASCENCIO Department: ED Room: Gender: M Steffen House Supervisor: NE : 2000 Requested By: SHANDRA VALADEZ Order Number: [id number] Reading MD: Measurements Intervals [place] Rate: 91 P: 66 MD: 156 QRS: 104 QRSD: 93 T: -7 QT: 350 QTc: 431 Interpretive Statements Sinus rhythm LAE, consider biatrial enlargement Borderline right axis deviation Nonspecific T abnormalities, inferior leads Please click the below link to view image of tracing.
== END 2024-12-25 05:58 | disposition home or self-care (01) ==
LOC: ER 02:46
DX: E10.65 Type 1 diabetes mellitus with hyperglycemia (principal); R07.89 Other chest pain; F12.90 Cannabis use, unspecified, uncomplicated
CPT/HCPCS: 36415; 71045; 80048; 82947; 84484; 85025; 93005; 96372; 99285; J1815; 82962

== ENCOUNTER 2025-01-05 17:14 | Emergency (ER) | payer MEDICAID ==
[~2025-01-05] VITALS: Ht 162.6 cm; Wt 63.7 kg
--- NOTE | 2025-01-05 17:34 | ED.PDOC ---
Altered Mental Status HPI Comments HPI: Poor Historian. 24-year-old male brought in by ambulance for evaluation of lightheadedness dizziness and weakness and some mild shortness of breath. All this started 2 hours after he snorted cocaine. He also had some alcohol a tall can around that time. Patient took 8 mg of Narcan but did not have significant improvement. Denies use of any other drugs. Denies any fall or trauma or injury. Past Medical History: Diabetes Past Surgical History: Right hand surgery REVIEW OF SYSTEMS: CONSTITUTIONAL: Denies acute: fever, diaphoresis, chills, HEAD: Denies acute: headache, photophobia Eyes: Denies acute: Double vision, vision loss, eye pain, eye discharge. EARS: Denies acute: tinnitus, hearing loss, ear discharge, ear pain, THROAT: Denies acute: sore throat, swelling, difficulty swallowing , pain with swallowing, change in voice. NECK: Denies acute: neck pain, neck swelling, stiff neck. HEART: Denies acute : chest pain, palpitations, LUNGS: Denies acute: wheezing, cough, hemoptysis ABDOMEN: Denies acute: abdominal pain, Nausea, Vomiting, diarrhea, melena , hematemesis, hematochezia SKIN: Denies acute: rash, redness, lesions, itchiness. EXTREMITIES: Denies acute: calf pain, numbness, tingling, weakness, denies pain in extremity. Denies acute: Low back pain. Neuro: Denies acute: focal neurological deficit, motor or sensory focal neurological deficit, tremors, seizure like activity, confusion, change in mental status, loss of bowel or bladder function, cauda equina like symptoms. : Denies acute: dysuria, hematuria, flank pain, increase in urinary frequency. PSYCH: Denies acute: hallucination, suicidal ideation, homicidal ideation. PHYSICAL EXAM: General: --mild------acute distress, awake and alert. Head: normocephalic, atraumatic. Neck: supple, trachea is midline, no swelling. Throat: Normal phonation. Eyes:, no erythema, no purulent discharge, no proptosis, no icterus. Heart: regular rate, regular rhythm, no significant murmur appreciated. Lungs: no apparent respiratory distress, Able to speak in full sentences. No wheezing, no rhonchi, no crackles. No stridors Clear to auscultation bilaterally. Abdomen: non tender to palpation, non distended, soft, no guarding, no rebound, + bowel sounds. Neuro: Awake, Alert, oriented to name, self, situation, follows commands GCS=15. Speech is normal. Skin: no petechia, no purpura, no cyanosis, non-pale, not jaundice. Lower extremities: --no - Pitting edema no deformity, no focal swelling, no calf TTP. Makes eye contact. moves all four extremities. Face: no apparent facial droop. Ambulating in the ED independently. ED COURSE: Chief Complaint: Overdose Time Seen by MD: 17:26 Primary Care Provider: RITESH Reviewed Notes: Allergies Allergies: Coded Allergies: NO KNOWN ALLERGIES (Unverified , 11/16/12) Home Meds Active Scripts Ondansetron Odt 4MG Tab (ZOFRAN PO) 4 Mg Tb, 4 MG PO TID for 7 Days, #21 TAB ODT TAB-DISSOLVE IN MOUTH, THEN SWALLOW Prov:ARSENIO WALKER MD 07/18/23 Ibuprofen Micronized (MOTRIN TABLET) 600 Mg Tb, 1 TAB PO TID PRN, #20 TAB as needed for pain with food Prov:HAYES MELENDREZ Q HELPDESK SPECIALIST 02/16/23 Clindamycin Hcl (Clindamycin Hcl) 300 Mg Cap, 1 CAP PO QID for 10 Days, #40 CAP Prov:HAYES MELENDREZ Q HELPDESK SPECIALIST 02/16/23 Ibuprofen (Ibuprofen) 600 Mg Tab, 1 TAB PO Q8HPRN PRN, #90 TAB 0 Refills Prov:OLIVIA MASON MANAGER PURCHASING 07/13/22 Ondansetron (Zofran) 4 Mg Tab, 1 TAB PO Q6HR, #20 TAB Prov:MARIA L CORMIER MD 05/25/22 Reported Medications Insulin Glargine (Lantus) 100 Unit/Ml Inj, 27 UNIT SC 11/05/22 Information Source: Patient Past Medical History PAST MEDICAL HISTORY: DM Surgical History: Denies all surgeries Family History Family History: Unknown Social History Smoker: Non-Smoker, Other Alcohol: Occasionally Drugs: Marijuana Lives In: Home Was a procedure done? Was a procedure done?: No Differential Diagnosis (ALOC) Differential Diagnosis: Dehydration, Hypoglycemia, DKA, Encephalopathy, Sepsis, Hypoxemia, Seizure, CVA, Mass Lesion, SAH, Drug Overdose, ETOH Intoxication X-Ray, Labs, Meds, VS Vital Signs Date Time Temp Pulse Resp B/P (MAP) Pulse Ox O2 Delivery O2 Flow Rate FiO2 01/05/25 22:00 Room Air* 0 21 01/05/25 20:50 97.8 86 18 146/70 (95) 95 97.8 01/05/25 17:24 98.7 99 20 140/82 (101) 95 98.7 Lab Test 01/05/25 22:55 01/05/25 22:10 01/05/25 20:58 01/05/25 20:54 Range/Units POC Glucose 409 *H 531 *H 523 *H 460 *H 70-106 mg/dl Test 01/05/25 18:00 01/05/25 00:00 Range/Units White Blood Count 9.7 4.4-10.8 10^3/uL Red Blood Count 5.60 4.5-5.90 10^6/uL Hemoglobin 17.4 13.5-17.5 g/dL Hematocrit 50.3 41.0-53.0 % Mean Corpuscular Volume 89.8 80.0-100.0 fL Mean Corpuscular Hemoglobin 31.1 28.0-32.0 pg Mean Corpuscular Hemoglobin Concent 34.7 32.0-36.0 g/dL Red Cell Distribution Width 13.2 11.8-14.3 % Platelet Count 359 140-450 10^3/uL Mean Platelet Volume 7.1 6.9-10.8 fL Neutrophils (%) (Auto) 77.2 37.0-80.0 % Lymphocytes (%) (Auto) 14.3 10.0-50.0 % Monocytes (%) (Auto) 7.4 0.0-12.0 % Eosinophils (%) (Auto) 0.5 0.0-7.0 % Basophils (%) (Auto) 0.6 0.0-2.0 % Neutrophils # (Auto) 7.5 1.6-8.6 10 ^3/uL Lymphocytes # (Auto) 1.4 0.4-5.4 10 ^3/uL Monocytes # (Auto) 0.7 0-1.3 10 ^3/uL Eosinophils # (Auto) 0.1 0-0.8 10 ^3/uL Basophils # (Auto) 0.1 0-0.2 10 ^3/uL Nucleated Red Blood Cells 0.2 % Sodium Level 135 L 136-145 mmol/L Potassium Level 4.7 3.5-5.1 mmol/L Chloride Level 97 L 98-107 mmol/L Carbon Dioxide Level 25 20-31 mmol/L Anion Gap 13 5-15 Blood Urea Nitrogen 10 9-23 mg/dL Creatinine 1.13 0.700-1.30 mg/dL Glomerular Filtration Rate Calc 93 >90 mL/min BUN/Creatinine Ratio 8.8 L 10.0-20.0 Serum Glucose 399 H 74-106 mg/dL Lactic Acid Level 1.3 0.4-2.0 mmol/L Calcium Level 11.1 H 8.7-10.4 mg/dL Magnesium Level 1.8 1.6-2.6 mg/dL Total Bilirubin 1.7 H 0.2-1.0 mg/dL Aspartate Amino Transferase (AST) 18 13-40 U/L Alanine Aminotransferase (ALT) 31 7-40 U/L Alkaline Phosphatase 170 H 46-116 U/L Creatine Kinase 116 46-171 U/L Troponin I High Sensitivity < 3 L </=54 ng/L Total Protein 7.7 5.7-8.2 g/dL Albumin 5.1 H 3.2-4.8 g/dL Plasma/Serum Blood Alcohol < 3.0 <10 mg/dL Urine Color Light-yellow Yellow Urine Clarity Clear Clear Urine pH 5.5 5.0-9.0 Urine Specific [place] 1.032 1.001-1.035 Urine Protein Negative Negative Urine Ketones 2+ H Negative Urine Blood Negative Negative /uL Urine Nitrite Negative Negative Urine Bilirubin Negative Negative Urine Urobilinogen Normal Negative mg/dL Urine Leukocyte Esterase 2+ Negative /uL Urine RBC 3 0 - 3 /hpf Urine Microscopic WBC 7 H 0-3 /HPF Urine Squamous Epithelial Cells Few <5 /hpf Urine Bacteria None seen None Seen /hpf Urine Mucus Few None Seen Urine Glucose 4+ H Normal mg/dL Urine Opiates Screen Neg NEGATIVE Urine Fentanyl Screen Neg NEGATIVE Urine Barbiturates Screen Neg NEGATIVE Urine Phencyclidine Screen Neg NEGATIVE Urine Amphetamines Screen Neg NEGATIVE Urine Benzodiazepines Screen Neg NEGATIVE Urine Cocaine Screen Pos NEGATIVE Urine Cannabinoids Screen Neg NEGATIVE Current Medications Medications (Trade) Dose Ordered Sig/Siri Route Start Time Stop Time Status Last Admin Sodium Chloride 1,000 ml @ 1,000 mls/hr Q1H ONCE IV 01/05/25 17:45 01/05/25 18:44 DC 01/05/25 18:39 Naloxone HCl (Narcan) 2 mg ONCE ONCE IV 01/05/25 17:45 01/05/25 17:55 DC 01/05/25 18:39 Insulin Human Regular (InsuLIN R) 5 units ONCE ONCE IV 01/05/25 21:15 01/05/25 21:16 DC 01/05/25 22:12 Sodium Chloride 1,000 ml @ 1,000 mls/hr Q1H ONCE IV 01/05/25 21:15 01/05/25 22:14 DC 01/05/25 22:00 [place] [id number] Ph: [phone] DIAGNOSTIC IMAGING Diagnostic Imaging Report : [id number] Signed PATIENT: SHERWIN ASCENCIO ACCT: [id number] UNIT: [id number] : 2000 LOC: ER ROOM / BED: / AGE / SEX: 24 / M ADM STATUS: REG ER SERVICE 173 ORDERING PHYSICIAN: JEMAL CHASE DO PROCEDURE(s): CXRP - CHEST PORTABLE REASON: Cocaine abuse ORDER NUMBER(s): [id number], ACCESSION NUMBER(s): [id number] CHEST RADIOGRAPH Indication: Cocaine abuse Technique: Single frontal view of the chest was obtained Comparison: XY CHEST PORTABLE on DOS: 12/25/24, XY CHEST PORTABLE on DOS: 10/24/23, EKG on DOS: 05/25/22 FINDINGS: Lines and Tubes: None Lungs: No focal consolidation. Pleura: No effusion. No pneumothorax. Cardiomediastinal contours: Unremarkable Bones: No acute osseous abnormality. IMPRESSION: No acute cardiopulmonary disease. ATED BY: MELBA ANSARI DO DICTATED DATE/TIME: 01/05/251820 SIGNED BY: MELBA ANSARI DO SIGNED DATE/TIME: 01/05/251820 CC: Time of 1ST Reevaluation: 20:24 (As of now, urinalysis and drug screen is still pending.) Reevaluation 1ST: Improved Time of 2ND Reevaluation: 02:35 Reevaluation 2ND: Improved Patient Education/Counseling: Diagnosis, Treatment Family Education/Counseling: Other Comments Patient presented with the above HPI.---symptoms related to cocaine abuse---workup was initiated. patient was found with the above mentioned diagnosis. the following medications were ordered: please refer to order lists of meds and tests obtained by myself Dr. Chase. Patient ED course and VS have been stabilized. Patient has been reassessed in the ED and remained in a stable condition. Pertinent incidental findings were discussed with the patient and/or family. Patient/family voices understanding and is agreeable with plan. Patient has been observed in the ED adequate length of time to insure improvement/stability. Escalation of care considered: Consideration of escalation to observation or admission Patient was found with hyperglycemia. Fluids was given in Accu-Cheks was repeated which shows increase in his blood sugar level. Patient was given insulin and additional fluid hydration. Sugar improved. I wanted to pain the patient for admission for further evaluation however he said he will sign against medical advice if I put him for admission. He wants to be discharged home immediately. Patient was DISCHARGED home in a stable condition. All the reports of any imaging studies that were ordered by myself were reviewed by myself. Departure 1 Departure Time of Disposition: 21:51 Impression: Primary Impression: Cocaine abuse Additional Impression: Hyperglycemia due to diabetes mellitus Disposition: HOME / SELF CARE / HOMELESS Condition: Stable Additional Instructions: Additional instructions: You MUST follow-up with your primary care/family doctor in 1 to 2 days. If you are unable to see your primary care/family doctor, please return to our emergency room for re-assessment and re-evaluation in 1 to 2 days. Return to the emergency room here in our facility or to the nearest ER [facility] if your symptoms change or worsen. CONSULTATIONS: you MUST Follow-up for consultation as soon as possible with: -addiction medicine. You MUST call the consultants office yourself to make an appointment. You may need to arrange that through your insurance and/or your primary/family doctor. If you are unable to see the business info consultant in 1 to 2 days, you must return to our emergency room (or any other ER of your choice) for re-assessment and re- evaluation. Adequate fluid hydration. Avoid use of drugs and alcohol. Monitoring blood sugar at home at least 3 times a day. Follow diabetic diet. Comply with the your diabetes medications. Discharged With: Self Critical Care Note Critical Care Time?: Yes (35 min-critical care time only) Heart Score Heart Score: Heart Score Response (Comments) Value History N/A 0 EKG N/A 0 Age N/A 0 Risk Factors N/A 0 Troponin N/A 0 Total 0 I personally scribed for JEMAL CHASE DO ([email or web address]) on 01/05/25 at 21:42. Electronically submitted by Ector Venegas ([email or web address]). JEMAL CHASE DO Jan 05, 2025 17:34
[2025-01-05 18:18] LABS: Basophils # (auto) 0.1 10 ^3/uL (0-0.2); Basophils % (auto) 0.6 % (0.0-2.0); Eosinophils # (auto) 0.1 10 ^3/uL (0-0.8); Eosinophils % (auto) 0.5 % (0.0-7.0); Hematocrit 50.3 % (41.0-53.0); Hemoglobin 17.4 g/dL (13.5-17.5); Lymphocytes # (auto) 1.4 10 ^3/uL (0.4-5.4); Lymphocytes % (auto) 14.3 % (10.0-50.0); Mean Corpuscular Hemoglobin 31.1 pg (28.0-32.0); Mean Corpuscular Hgb Conc. 34.7 g/dL (32.0-36.0); Mean Corpuscular Volume 89.8 fL (80.0-100.0); Monocytes # (auto) 0.7 10 ^3/uL (0-1.3); Monocytes % (auto) 7.4 % (0.0-12.0); Neutrophils # (auto) 7.5 10 ^3/uL (1.6-8.6); Neutrophils % (auto) 77.2 % (37.0-80.0); Nucleated Red Blood Cells % 0.2 %; Platelet Count (auto) 359 10^3/uL (140-450); Red Cell Distribution Width 13.2 % (11.8-14.3); White Blood Cell 9.7 10^3/uL (4.4-10.8)
--- NOTE | 2025-01-05 18:23 | DVH ---
CHEST RADIOGRAPH Indication: Cocaine abuse Technique: Single frontal view of the chest was obtained Comparison: XY CHEST PORTABLE on DOS: 12/25/24, XY CHEST PORTABLE on DOS: 10/24/23, EKG on DOS: 2 FINDINGS: Lines and Tubes: None Lungs: No focal consolidation. Pleura: No effusion. No pneumothorax. Cardiomediastinal contours: Unremarkable Bones: No acute osseous abnormality. IMPRESSION: No acute cardiopulmonary disease.
[2025-01-05 18:32] LABS: Alanine Aminotransferase 31 U/L (7-40); Anion Gap 13 (5-15); Aspartate Aminotransferase 18 U/L (13-40); BUN/Creatinine Ratio 8.8 (10.0-20.0); Blood Urea Nitrogen 10 mg/dL (9-23); Carbon Dioxide 25 mmol/L (20-31); Creatine Kinase IFCC 116 U/L (46-171); Magnesium 1.8 mg/dL (1.6-2.6); Potassium 4.7 mmol/L (3.5-5.1); Total Protein 7.7 g/dL (5.7-8.2)
[2025-01-05 18:35] LABS: Albumin 5.1 g/dL (3.2-4.8); Alkaline Phosphatase 170 U/L (46-116); Bilirubin, Total 1.7 mg/dL (0.2-1.0); Blood Alcohol < 3.0 mg/dL (<10); Calcium 11.1 mg/dL (8.7-10.4); Chloride 97 mmol/L (98-107); Glucose 399 mg/dL (74-106); Sodium 135 mmol/L (136-145)
[2025-01-05] MEDS: NALOXONE HCL 1MG/ML 2ML SYRINGE IV ONE (18:39)
[2025-01-05] MEDS: SODIUM CHLORIDE 0.9% 1,000 ML IV ONE ×2 (18:39→22:00)
[2025-01-05 20:27] LABS: Urine Bacteria None Seen /hpf (None Seen)
[2025-01-05 20:39] LABS: Urine Blood Negative /uL (Negative); Urine Clarity Clear (Clear); Urine Color Light-Yellow (Yellow); Urine Mucus FEW (None Seen); Urine Protein, UAD Negative (Negative); Urine Specific Gravity 1.032 (1.001-1.035); Urine Squamous Epithelial Cell FEW /hpf (<5); Urine Urobilinogen Normal (Negative); Urine WBC 7 /HPF (0-3); Urine pH 5.5 (5.0-9.0)
[2025-01-05 20:50] VITALS: BP 146/70; PULSE 86; RESP 18; TEMP 97.8; O2SAT 95
[2025-01-05 20:53] LABS: Amphetamine Screen, Urine Neg (NEGATIVE); Barbiturate Scree,Urine Neg (NEGATIVE); Benzodiazephine Screen, Urine Neg (NEGATIVE); Cannabinoid Screen, Urine Neg (NEGATIVE); Cocaine Screen, Urine Pos (NEGATIVE); Opiate Scree,Urine Neg (NEGATIVE); Phencyclidine Screen, Urine Neg (NEGATIVE)
[2025-01-05] MEDS: InsuLIN REG 1unit/0.01ml Soln (100units/ml) IV ONE (22:12)
== END 2025-01-05 23:18 | disposition home or self-care (01) ==
LOC: EDBD 17:14 → ER 17:14
DX: F14.10 Cocaine abuse, uncomplicated (principal); E11.65 Type 2 diabetes mellitus with hyperglycemia; F10.90 Alcohol use, unspecified, uncomplicated; F12.90 Cannabis use, unspecified, uncomplicated; Z98.890 Other specified postprocedural states; Z79.899 Other long term (current) drug therapy; Y90.9 Presence of alcohol in blood, level not specified
CPT/HCPCS: 36415; 71045; 80053; 80307; 80320; 81001; 82550; 82947; 83605; 83735; 84484; 85025; 96361; 96374; 96375; 99284; J1815; J2310; J7030; 82962